=== PATIENT | female | born 1980 | race Two or more races ===

== ENCOUNTER 2022-08-30 15:03 | Emergency (ER) | payer MEDICAID, OTHER ==
[~2022-08-30] VITALS: Ht 157.5 cm; Wt 85.0 kg
[2022-08-30 15:30] VITALS: BP 192/110
[2022-08-30 16:06] LABS: Basophils # (auto) 0.1 10 ^3/uL (0-0.2); Basophils % (auto) 0.8 % (0.0-2.0); Eosinophils # (auto) 0.1 10 ^3/uL (0-0.8); Eosinophils % (auto) 0.6 % (0.0-7.0); Hematocrit 43.7 % (36.0-46.0); Hemoglobin 14.6 g/dL (12.2-16.2); Lymphocytes # (auto) 2.2 10 ^3/uL (0.4-5.4); Lymphocytes % (auto) 24.6 % (10.0-50.0); Mean Corpuscular Hemoglobin 27.7 pg (28.0-32.0); Mean Corpuscular Hgb Conc. 33.3 g/dL (32.0-36.0); Mean Corpuscular Volume 83.2 fL (80.0-100.0); Monocytes # (auto) 0.7 10 ^3/uL (0-1.3); Monocytes % (auto) 8.3 % (0.0-12.0); Neutrophils # (auto) 5.7 10 ^3/uL (1.6-8.6); Neutrophils % (auto) 65.7 % (37.0-80.0); Nucleated Red Blood Cells % 0.1 %; Red Blood Cells 5.25 10^6/uL (4.0-5.20); White Blood Cell 8.7 10^3/uL (4.4-10.8)
[2022-08-30 16:15] LABS: Urine Bacteria NONE SEEN /hpf (None Seen); Urine Blood 3+ /uL (Negative); Urine Specific Gravity 1.005 (1.001-1.035); Urine WBC 3 /hpf (0 - 5)
[2022-08-30 16:46] LABS: INR 0.94 (0.9-1.15); Partial Thromboplastin Time 29.4 sec (24.6-33.4)
[2022-08-30 17:19] LABS: Calcium 8.9 mg/dL (8.5-10.1); Potassium 3.6 mmol/L (3.5-5.1)
[2022-08-30 17:22] LABS: BUN/Creatinine Ratio 11.6 (10.0-20.0); Bilirubin, Total 0.4 mg/dL (0.2-1.0); Total Protein 8.4 g/dL (6.4-8.2)
== END 2022-08-30 21:18 | disposition left against medical advice (07) ==
LOC: ER 15:03
DX: O46.8X1 Other antepartum hemorrhage, first trimester (principal); O26.891 Other specified pregnancy related conditions, first trimester; R10.2 Pelvic and perineal pain; Z3A.01 Less than 8 weeks gestation of pregnancy
CPT/HCPCS: 36415; 76801; 76817; 80053; 81001; 84702; 85025; 85610; 85730; 86850; 86900; 86901; 93005